=== PATIENT | female | born 1930 | race Caucasian/White ===

== ENCOUNTER 2016-10-12 17:06 | Inpatient (IN) | payer OTHER ==
[~2016-10-12] VITALS: Ht 157.5 cm; Wt 78.7 kg
--- NOTE | ~2016-10-12 | 2DMMODE ---
[facility] [address] [email or web address] [place] [address] 2 D/M-MODE ECHOCARDIOGRAM Name: ZAIDA AZUL Room #: 209-P [facility] IN ..#: [id number] Admission: 10/12/16 Attend Phys: Marcus Lew, Discharge: Date of : 30 Date of Service: 10/14/16 1619 Report #: [id number] THIS REPORT FOR: //name// APPROVED REPORT Study performed: 10/14/2016 15:10:40 EXAM: Comprehensive 2D, Doppler, and color-flow Echocardiogram Patient Location: Bedside Room #: 209 Status: routine Other Information Study Quality: Adequate Indications AFIB RVR 2D Dimensions RVDd: 26.48 mm LVEF(%): 67.00 (>50%) IVSd: 12.43 (7-11mm) LVOT Diam: 21.28 (18-24mm) LVDd: 38.27 mm PWd: 10.72 (7-11mm) Ascending Ao: 29.99 (22-36mm) LVDs: 24.30 (25-40mm) Aortic Root: 32.01 mm Ash's LVEF: 67.00 % Volumes Left Atrial Volume (Systole) Single Plane 4CH: 41.51 mL Single Plane 2CH: 59.09 mL LA ESV Index: 32.00 mL/m2 Aortic Valve AoV Peak Manfred.: 1.29 m/s AO Peak Gr.: 8.57 mmHg LVOT Max P.08 mmHg LVOT Max V: 1.01 m/s NORRIS Vmax: 2.78 cm2 Mitral Valve MV Decel. Time: 166.72 ms MV E Max Manfred.: 1.03 m/s Pulmonary Valve PV Peak Manfred.: 0.98 m/s PV Peak Gr.: 3.92 mmHg [facility] [place] [address] 2 D/M-MODE ECHOCARDIOGRAM Name: ZAIDA AZUL Room #: 209-P [facility] IN .R.#: [id number] Admission: 10/12/16 Attend Phys: Marcus Lew, Discharge: Date of : 30 Date of Service: 10/14/16 1619 Report #: [id number] Tricuspid Valve TR Peak Manfred.: 2.83 m/s RAP Estimate: 5.00 mmHg TR Peak Gr.: 32.14 mmHg PA Pressure: 37.00 mmHg Left Ventricle The left ventricle is normal size. There is normal LV segmental wall motion. Mild basal septal hypertrophy is present. The left ventricular systolic function is normal. LVEF is 60-65%. This study is not technically sufficient to allow evaluation of the LV diastolic function due to atrial fibrillation. Right Ventricle The right ventricle is normal size. The right ventricular systolic function is normal. Atria Left atrium is at the upper limits of normal. The right atrium size is normal. Aortic Valve The aortic valve is normal in structure. No aortic regurgitation is present. There is no aortic valvular stenosis. Mitral Valve Mild mitral annular calcification. Mild mitral regurgitation. No evidence of mitral valve stenosis. Tricuspid Valve The tricuspid valve is normal in structure. There is trace to mild tricuspid regurgitation. The right atrial pressure is estimated at 5 mmHg. There is mild pulmonary hypertension with an estimated PAP of 35-40mmHg. Pulmonic Valve The pulmonary valve is normal in structure. Mild pulmonic regurgitation. Great Vessels The aortic root is normal in size. The ascending aorta is normal in size. IVC is normal in size and collapses >50% with inspiration. Pericardium There is no pericardial effusion. [facility] [address] [place] [address] 2 D/M-MODE ECHOCARDIOGRAM Name: ZAIDA AZUL Room #: 209-P [facility] IN ..#: [id number] Admission: 10/12/16 Attend Phys: Marcus Lew, Discharge: Date of : 30 Date of Service: 10/14/16 1619 Report #: [id number] <Conclusion> The left ventricular systolic function is normal. There is normal LV segmental wall motion. LVEF 60-65%. The aortic valve is normal in structure. No aortic regurgitation or stenosis Mild mitral annular calcification. Mild mitral regurgitation. There is mild pulmonary hypertension with an estimated PAP of 35-40mmHg. There is no pericardial effusion. <ELECTRONICALLY SIGNED> By: Jamie Arora MD, FACC 10/14/16 1619 18 18 Jamie Arora MD, FACC /INF
--- NOTE | ~2016-10-12 | EKG ---
[address] [address] ELECTROCARDIOGRAM REPORT Name: ZAIDA AZUL Room #: 428-P [facility] IN .R.#: [id number] Admission: 10/12/16 Attend Phys: Baldev Monk MD Discharge: Date of : 30 Report #: [id number] THIS REPORT FOR: //name// [facility] ED Test Date: 2016-10-12 Test Time: 19:13:43 Pat Name: ZAIDA AZUL Department: Room: 428 Gender: F Success Coach: marielle feliz : 1930 Requested By: Delvin Jarquin Order Number: [id number] MD: Clemente Pinto Measurements Intervals [place] Rate: 83 P: 50 [place]: 183 QRS: -15 QRSD: 126 T: 4 QT: 395 QTc: 465 Interpretive Statements Sinus rhythm Right bundle branch block No previous ECG available for comparison Electronically Signed On 10-13-2016 13:15:43 CDT by Clemente Pinto [email or web address] <ELECTRONICALLY SIGNED> By: Clemente Pinto MD 10/13/16 1315 1913 12 Clemente Pinto MD /PHILIP
--- NOTE | ~2016-10-12 | EKG ---
[address] [place] [place] [address] ELECTROCARDIOGRAM REPORT Name: LATHAZAIDANicole Sullivan Room #: 209-P [facility] IN M.R.#: [id number] Admission: 10/12/16 Attend Phys: Marcus Lew DO Discharge: Date of : 30 Report #: [id number] THIS REPORT FOR: //name// [facility] Test Date: 2016-10-14 Test Time: 12:52:34 Pat Name: ZAIDA AZUL Department: Room: 209 Gender: F Windows Software Engineer: Amber GALINDO : 1930 Requested By: Marcus Lew Order Number: [id number] MD: Jamie Arora Measurements Intervals [place] Rate: 147 P: SD: QRS: -26 QRSD: 123 T: -14 QT: 316 QTc: 495 Interpretive Statements Atrial fibrillation with a rapid ventricular response Right bundle branch block Compared to ECG 10/12/2016 19:13:43 Sinus rhythm no longer present Electronically Signed On 10-15-2016 8:22:03 CDT by Jamie Arora [email or web address] <ELECTRONICALLY SIGNED> By: Jamie Arora MD, LOCATED [facility]IN [facility] 10/15/16 08 125 51 Jamie Arora MD, [facility]ATED [facility] /EPI
[2016-10-12 17:07] VITALS: BP 182/71
[2016-10-12] MEDS ORDERED: LEVOTHYROXIN0.025 MG (17:11)
[2016-10-12] MEDS ORDERED: DYRENIUM50 MG (17:11)
[2016-10-12] MEDS ORDERED: OMEPRAZOLE 20 M20 M1 PO (17:12)
[2016-10-12 17:32] LABS: ABSOLUTE NEUTROPHILS 10.6 thou/uL (1.4-8.2); BASOPHILS 0.8 % (0.0-2.0); HEMATOCRIT 37.8 % (37.0-47.0); HEMOGLOBIN 13.2 gm/dL (12.0-15.0); LYMPHOCYTES 21.5 % (24.0-44.0); MCH 30.5 pg (26.0-34.0); MCHC 34.8 g/dL (28.0-37.0); MCV 87.6 fL (80.0-100.0); MONOCYTES 7.8 % (1.0-8.0); PLATELET COUNT 327 thou/uL (150-400); POLYS 66.9 % (36.0-66.0); RBC 4.32 mil/uL (4.20-5.00); RDW 13.8 % (10.5-14.5); WBC 15.8 thou/uL (4.0-11.0)
[2016-10-12 17:33] LABS: MANUAL DIFF NO
[2016-10-12 17:39] LABS: CALCIUM 8.8 mg/dL (8.5-10.1); CREATININE 0.9 mg/dL (0.6-1.0); POTASSIUM 3.6 mmol/L (3.5-5.1)
[2016-10-12 17:44] LABS: ALBUMIN 3.3 g/dL (3.4-5.0); TOTAL BILIRUBIN 0.3 mg/dL (<0.1-1.0); TOTAL PROTEIN 7.4 g/dL (6.4-8.2)
[2016-10-12 20:00] VITALS: BP 140/62
[2016-10-12 20:40] VITALS: BP 140/49
[2016-10-12] MEDS ORDERED: LEVOTHYROXINE0.05 MG PO (22:54)
[2016-10-13 04:28] VITALS: BP 133/61
[2016-10-13 08:00] VITALS: BP 126/56
[2016-10-13 09:02] LABS: PROTIME 10.7 Seconds (9.3-11.4)
[2016-10-13 10:57] LABS: URINE BILIRUBIN NEGATIVE (Negative); URINE BLOOD 1+ (Negative); URINE COLOR YELLOW; URINE GLUCOSE-RANDOM* NEGATIVE (Negative); URINE KETONES NEGATIVE (Negative); URINE LEUKOCYTES-REFLEX 1+ (Negative); URINE PROTEIN (DIPSTICK) NEGATIVE (Negative); URINE SPECIFIC GRAVITY >= 1.030 (1.003-1.035); URINE UROBILINOGEN 0.2 E.U./dl (0.2-1.0)
[2016-10-13 11:09] LABS: CASTS None Seen /LPF (None Seen); SQUAMOUS 0-3 Few /LPF (0-3)
[2016-10-13 11:10] LABS: URINE RBC 3-10 Few /HPF (0-2)
[2016-10-13 11:11] LABS: CRYSTALS None Seen /LPF (None Seen); WBC CLUMPS Few (None Seen)
[2016-10-13 15:48] VITALS: BP 118/61
[2016-10-13 20:00] VITALS: BP 112/41
[2016-10-14 04:00] VITALS: BP 136/40
[2016-10-14 09:40] VITALS: BP 136/66
[2016-10-14 13:22] VITALS: BP 144/74
[2016-10-14 13:40] LABS: HEMATOCRIT 33.6 % (37.0-47.0); MCH 29.2 pg (26.0-34.0); MCHC 33.3 g/dL (28.0-37.0); MCV 87.7 fL (80.0-100.0); RBC 3.83 mil/uL (4.20-5.00); RDW 13.7 % (10.5-14.5)
[2016-10-14 13:42] LABS: HEMOGLOBIN 11.2 gm/dL (12.0-15.0)
[2016-10-14 13:44] LABS: ABG SAMPLE TYPE ARTERIAL; BE(vivo) 4.6 mmol/L (-2 to +3); HCO3 29.5 mmol/L (22.0-26.0); O2(CT) 15.6 mL/dL (15.0-23.0); O2Hb 92.3 % (92.0-98.0); PCO2 45.2 mmHg (35.0-45.0); PO2 65.1 mmHg (80.0-100.0); pH 7.433 (7.360-7.450); sO2 93.2 % (92.0-98.0); tCO2 30.9 mmol/L (24.0-30.0)
[2016-10-14 13:48] LABS: STICK SITE L.RADIAL
[2016-10-14 13:49] LABS: CALCIUM 8.5 mg/dL (8.5-10.1); CREATININE 0.9 mg/dL (0.6-1.0); POTASSIUM 4.1 mmol/L (3.5-5.1)
[2016-10-14 13:55] LABS: ALBUMIN 2.8 g/dL (3.4-5.0); MAGNESIUM 1.8 mg/dL (1.8-2.4); TOTAL BILIRUBIN 0.8 mg/dL (<0.1-1.0); TOTAL PROTEIN 6.7 g/dL (6.4-8.2); TROPONIN-I 0.07 ng/mL (<0.04-0.07)
[2016-10-14 14:15] VITALS: BP 114/63
[2016-10-14 19:46] VITALS: BP 123/53
[2016-10-15 04:26] VITALS: BP 138/45
[2016-10-15 09:30] VITALS: BP 132/53
[2016-10-15 16:50] VITALS: BP 139/48
[2016-10-15 20:00] VITALS: BP 131/62
[2016-10-16 04:33] VITALS: BP 153/47
[2016-10-16 08:55] VITALS: BP 129/57
[2016-10-16] MEDS ORDERED: PERCOCET PO (09:49)
[2016-10-16] MEDS ORDERED: ELIQUIS2.5 MG PO (09:56)
[2016-10-16] MEDS ORDERED: METOPROLOL SUCC25 M1 PO (09:57)
[2016-10-16] MEDS ORDERED: ELIQUIS5 MG PO (10:58)
[2016-10-16 11:30] VITALS: BP 119/70
[2016-10-16] MEDS ORDERED: TENORMIN50 MG PO (16:01)
[2016-10-16 17:00] VITALS: BP 134/54
[2016-10-16 19:36] VITALS: BP 130/50
[2016-10-17 00:53] LABS: URINE BILIRUBIN NEGATIVE (Negative); URINE BLOOD 2+ (Negative); URINE COLOR YELLOW; URINE GLUCOSE-RANDOM* NEGATIVE (Negative); URINE KETONES NEGATIVE (Negative); URINE NITRITE POSITIVE (Negative); URINE PROTEIN (DIPSTICK) 2+ (Negative)
[2016-10-17 02:23] LABS: BACTERIA >30 Many /HPF (None Seen); CASTS None Seen /LPF (None Seen); SQUAMOUS None Seen /LPF (0-3)
[2016-10-17 02:24] LABS: URINE WBC 6-15 Few /HPF (0-5)
[2016-10-17 02:25] LABS: URINE RBC 0-2 Rare /HPF (0-2)
[2016-10-17 03:49] VITALS: BP 116/45
[2016-10-17 07:59] VITALS: BP 121/42
[2016-10-17 12:10] VITALS: BP 117/51
[2016-10-17 16:58] VITALS: BP 127/40
[2016-10-17 20:20] VITALS: BP 130/44
[2016-10-18 03:41] VITALS: BP 143/63
[2016-10-18 04:10] LABS: HEMATOCRIT 28.3 % (37.0-47.0); HEMOGLOBIN 9.9 gm/dL (12.0-15.0); MCH 30.4 pg (26.0-34.0); MCHC 34.9 g/dL (28.0-37.0); RBC 3.25 mil/uL (4.20-5.00); RDW 13.6 % (10.5-14.5); WBC 11.4 thou/uL (4.0-11.0)
[2016-10-18 04:20] LABS: ALBUMIN 2.2 g/dL (3.4-5.0); CALCIUM 8.2 mg/dL (8.5-10.1); CREATININE 0.7 mg/dL (0.6-1.0); PHOSPHORUS 3.7 mg/dL (2.5-4.9)
[2016-10-18 07:43] VITALS: BP 136/52
[2016-10-18] MEDS ORDERED: CIPRO250 M1 PO (08:49)
== END 2016-10-18 14:00 | DRG 562 ==
LOC: ER 17:06 → EROBS 19:31 → 4E 19:31 → 2N 10-14 14:04
PROVIDERS: Emergency Medicine; Family Medicine; Hospitalist; Internal Medicine Cardiovascular Disease; Nurse Practitioner Acute Care; Nurse Practitioner Family
PROC: 2W38X1Z Immobilization of Right Upper Extremity using Splint (ICD-10-PCS; principal; 2016-10-12)
DX: S42.351A Displaced comminuted fracture of shaft of humerus, right arm, initial encounter for closed fracture (principal); E43 Unspecified severe protein-calorie malnutrition; S32.591A Other specified fracture of right pubis, initial encounter for closed fracture; K21.9 Gastro-esophageal reflux disease without esophagitis; I48.0 Paroxysmal atrial fibrillation; E03.9 Hypothyroidism, unspecified; M19.90 Unspecified osteoarthritis, unspecified site; Y92.89 Other specified places as the place of occurrence of the external cause; W18.39XA Other fall on same level, initial encounter; Y93.01 Activity, walking, marching and hiking; Z90.710 Acquired absence of both cervix and uterus; Z90.49 Acquired absence of other specified parts of digestive tract; Z98.1 Arthrodesis status; Z83.3 Family history of diabetes mellitus; Y99.8 Other external cause status
CPT/HCPCS: 10081; 10084